=== PATIENT | female | born 1975 | race Two or more races ===

== ENCOUNTER 2018-03-01 12:44 | Outpatient (CLI) | payer OTHER | END 2018-03-01 12:54 | disposition home or self-care (01) | LOC: MAMO-SONO 12:44 | DX: Z12.31 Encounter for screening mammogram for malignant neoplasm of breast (principal); N60.11 Diffuse cystic mastopathy of right breast; N64.89 Other specified disorders of breast; N64.4 Mastodynia ==

== ENCOUNTER 2020-05-31 12:02 | Emergency (ER) | payer OTHER ==
[~2020-05-31] VITALS: Ht 154.9 cm; Wt 54.4 kg
[2020-05-31] MEDS ORDERED: BACTRIM DS TAB1 EACH PO (12:59)
== END 2020-05-31 14:17 | disposition home or self-care (01) ==
LOC: ER 12:02
DX: L05.01 Pilonidal cyst with abscess (principal)

== ENCOUNTER 2022-01-07 15:36 | Outpatient (CLI) | payer OTHER ==
[~2022-01-07 15:36] MED LIST: BACTRIM DS TAB1 EACH PO
== END 2022-01-07 15:47 | disposition home or self-care (01) ==
LOC: RAD 15:36
DX: M79.673 Pain in unspecified foot (principal)

== ENCOUNTER 2022-11-12 14:09 | Outpatient (CLI) | payer OTHER | END 2022-11-12 14:24 | disposition home or self-care (01) | LOC: MAMO-SONO 14:09 | PROVIDERS: ATTEND Obstetrics & Gynecology Maternal & Fetal Medicine | DX: Z12.31 Encounter for screening mammogram for malignant neoplasm of breast (principal); N63.0 Unspecified lump in unspecified breast; N64.4 Mastodynia; N60.11 Diffuse cystic mastopathy of right breast; R10.2 Pelvic and perineal pain ==

== ENCOUNTER 2025-02-12 14:06 | Outpatient (CLI) | payer OTHER | END 2025-02-12 14:22 | disposition home or self-care (01) | LOC: MAMO-SONO 14:06 | PROVIDERS: ATTEND Obstetrics & Gynecology Maternal & Fetal Medicine | DX: N63.0 Unspecified lump in unspecified breast (principal); N64.4 Mastodynia; N60.11 Diffuse cystic mastopathy of right breast; Z12.31 Encounter for screening mammogram for malignant neoplasm of breast; R10.2 Pelvic and perineal pain ==